=== PATIENT | female | born 1975 ===

== ENCOUNTER 2017-07-14 10:06 | Outpatient (CLI) | payer OTHER ==
[~2017-07-14 10:06] MED LIST: ASPIRIN81 M1; DOLOGEN CAPLET1 TAB PO; MACROBID 100 M100 MG PO; TYLENOL-CODEINE1 TAB PO; ZITHROMAX500 MG PO; ZYNCOF 20-400120 ML PO
== END 2017-07-14 17:00 | disposition home or self-care (01) ==
LOC: RX STUDY 10:06
DX: R05 Cough (principal); J45.20 Mild intermittent asthma, uncomplicated